=== PATIENT | female | born 1955 | race Caucasian/White ===

== ENCOUNTER 2017-05-28 09:00 | Outpatient (RCR) | payer BC, SELFPAY ==
[2017-05-14 09:55] VITALS: BP 152/95; PULSE 79; RESP 16; TEMP 36.6; BMI 54.8
--- NOTE | 2017-05-14 11:26 | HP.PCM_ITS ---
(1) Swelling of lower limb Status: Chronic Current Visit: Yes Code(s): M79.89 - Other specified soft tissue disorders (2) Edema of both legs Status: Chronic Current Visit: Yes Code(s): R60.0 - Localized edema (3) Leg ulcer Status: Acute Current Visit: Yes Qualifiers: Laterality: left Non-pressure ulcer stage: limited to breakdown of skin Qualified Code(s): L97.921 - Non-pressure chronic ulcer of unspecified part of left lower leg limited to breakdown of skin Code(s): L97.909 - Non-pressure chronic ulcer of unspecified part of unspecified lower leg with unspecified severity (4) Chronic venous insufficiency Status: Chronic Current Visit: Yes Code(s): I87.2 - Venous insufficiency ( chronic) (peripheral) (5) Lipodermatosclerosis Status: Chronic Current Visit: Yes Code(s): I83.10 - Varicose veins of unspecified lower extremity with inflammation (6) Hyperpigmentation Status: Chronic Current Visit: Yes Code(s): L81.9 - Disorder of pigmentation , unspecified (7) Morbid obesity with BMI of 50.0-59.9, adult Status: Chronic Current Visit: Yes Code(s): E66.01 - Morbid (severe) obesity due to excess calories; Z68.43 - Body mass index (BMI) 50-59.9 , adult (8) SOB (shortness of breath) Status: Chronic Current Visit: No Code(s): R06.02 - Shortness of breath (9) Sleep apnea Status: Chronic Current Visit: No Code(s): G47.30 - Sleep apnea, unspecified (10) Osteoarthritis Status: Chronic Current Visit: No Code(s): M19.90 - Unspecified osteoarthritis, unspecified site (11) History of pulmonary embolism Status: Chronic Current Visit: No Code(s): Z86.711 - Personal history of pulmonary embolism History of Present Illness Date of Service: 05/14/17 Chief Complaint: Chronic swelling and edema in the lower extremities bilaterally History of Wound: This is a 61-year-old female with a 2-3 year history of swelling and edema in her lower extremities bilaterally. She has previously been treated for these symptoms and manifestations at this facility. She claims to sleep on a flat mattress at night. She is ambulatory, but not very active. 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 She denies a history of thrombophlebitis, but has a history of pulmonary embolism in 2016, for which she has been on systemic anticoagulation since that time, currently with Eliquis. She wears graduated compression stockings of 20-30 mmHg , obtained at a local medical supply store, approximately 1 year ago. Past Medical History Past Medical History: Chronic Problems Swelling of lower limb (Chronic) Edema of both legs (Chronic) Chronic venous insufficiency (Chronic) Lipodermatosclerosis (Chronic) Hyperpigmentation (Chronic) Morbid obesity with BMI of 50.0-59.9, adult (Chronic) SOB (shortness of breath) (Chronic) Sleep apnea (Chronic) Osteoarthritis (Chronic) History of pulmonary embolism (Chronic) Past Medical History: Patient has a history of morbid obesity, sleep apnea, osteoarthritis, and shortness of breath. She also has a history of pulmonary embolism, diagnosed in 2016. She denies a history of lower extremity thrombophlebitis. Her history is also negative for diabetes mellitus, myocardial infarction, congestive heart failure, cerebrovascular accident, hypertension, cancer, renal disease, hyperlipidemia, and thyroid disease. Surgical History: cholecystectomy, - - Patient underwent open cholecystectomy in 1984. She is a Ab0. Allergies/Adverse Reactions: Allergies No Known Allergies Allergy (Verified 05/14/17 10:35) Home Medications: Ambulatory Orders Medication Instructions Recorded Apixaban [Eliquis] 5 mg PO DAILY 05/14/17 Bumetanide [Bumex] 2 mg PO DAILY 05/14/17 Potassium Chloride [Klor-Con] 20 meq PO DAILY 05/14/17 - Family History Maternal - - Patient's father at the age of 72 with a history of pancreatic cancer. Patient's mother at age of 72 from a homicide. She also suffered from diabetes mellitus and hypertension. Social History: The patient is . She denies the use of tobacco products. She consumes alcoholic beverages occasionally. 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 Lives: Spouse/ Significant Other Smoking Status: Never smoker Tobacco Use: Non-smoker Alcohol: Rare Drugs: None Review of Systems Constitutional: Denies: Chills, Fever, Weight Change Eyes: Denies: Pain, Vision Change HEENT: Denies: Difficulty Hearing, Difficulty Swallowing, Sinus Congestion Cardiovascular: Denies: Chest Pain, Palpitations Respiratory: Denies: Cough, Shortness of Breath Gastrointestinal: Denies: Diarrhea, Nausea, Vomiting Genitourinary: Denies: Dysuria, Hematuria Endocrine: Denies: Heat/ Cold Intolerance, Polydipsia, Polyuria Hematologic/ Lymphatic: Denies: Easy Bruising, Easy Bleeding - Physical Exam Vital Signs Temp Pulse Resp BP 97.8 F 79 16 152/95 H 05/14/17 09:55 05/14/17 09:55 05/14/17 09:55 05/14/17 09:55 General: Alert, Oriented x3, Cooperative, No apparent distress, Well developed, Well nourished, - - The patient is morbidly obese HEENT: Atraumatic, PERRLA, EOMI, Normocephalic Oral: Moist Mucosa, No Gingival or Mucosal Lesions/ Ulcerations Neck: Supple, No JVD, Negative Carotid Bruits, Negative Hepatojugular Reflux, No Nodes, No Nuchal Rigidity, Trachea Midline Lungs: Clear to auscultation, Normal air movement, No rhonchi, No wheeze, No rales Cardiovascular: Regular rate, Regular Rhythm, Normal S1, Normal S2, No murmurs, No Ectopic Activity Abdomen: Soft, Non Tender, Non-Distended, Obese Extremities: No clubbing, No cyanosis, No Calf Tenderness, - - Severe swelling and edema is noted in the lower extremities bilaterally. There is a very small superficial open ulceration on the left anterior tibial surface. Dimensions are documented elsewhere. There is no sign of infection or cellulitis. Mild hyperpigmentation and lipodermatosclerosis is noted on the anterior tibial surfaces bilaterally. Wound Measurements and Assessment - Nurse 1 - General Ulcer Measurement Start: 05/14/17 09:52 Freq: Status: Active Protocol: Activity Type Activity Date Activity User E-Sign Co-Sign Detail Recorded Client Recorded Date Recorded By Document 05/14/17 09:55 [facility] [id number] 05/14/17 10:16 [facility] 05/14/17 09:55 Wound Center Nurse 1 [Ulcer Assessment Protocol: WC.WD.LOC] #2- BLE EDEMA -Combined with other wound No #1- LT CORTES -Combined with other wound No -Current Size (cm) - Length 0.6 -Current Size (cm) - Width 0.5 -Current Size (cm) - Depth 0.1 -Total Square Cm 0.30 -Date of Last Picture (Recall this 05/14/17 field) -Photo Taken No -Epithelialization None Present -Tunneling No -Undermining/Tunneling No -Exudate Amt Small (1-33%) -Exudate Type Serous -Wound Margin Distinct, Outline Attached -Granulation Amt Large (67-100%) -Granulation Quality Red -Slough/Fibrin No -Necrosis Amt None Present (0 %) -Structure Exposed None/Limited to Skin Breakdown -Texture (Indigo-wound Skin Appearance) Assessed -Moisture (Indigo-wound Skin Appearance Dry/Scaly ) -Color (Indigo-wound Skin Appearance) Hemosiderin Staining -Temperature (Indigo-wound Skin No Abnormality Appearance) (Pt Warm) -Tenderness on Palpation (Indigo-wound No Skin Appearance) -Ulcer Cleansing Rinsed/ Irrigated with Saline -Foul Odor after Cleansing No -Anesthetic Used 4% Lidocaine Solution [Edema Assessment] -Lower Limb Edema Present Yes -Right Calf (cm) 52.2 -Right Ankle (cm) 27.5 -Left Calf (cm) 52.9 -Left Ankle (cm) 28.6 Musculoskeletal: No Muscle Wasting Neurological: Cranial nerves II-XII grossly intact, Neuro grossly intact Psych/Mental Status: Normal Affect, Appropriate, Alert and oriented to time, place, person, mood and affect Debridement Note No debridement was completed today Assessment/Plan Active Problems Swelling of lower limb (Chronic) Edema of both legs (Chronic) Leg ulcer (Acute) Chronic venous insufficiency (Chronic) Lipodermatosclerosis (Chronic) Hyperpigmentation (Chronic) Morbid obesity with BMI of 50.0-59.9, adult (Chronic) Assessment: This is a 61-year-old morbidly obese female who presents with a several year history of swelling and edema in her lower extremities. Her other medical problems are documented elsewhere. It appears as though her lower extremity swelling is likely related to immobility, chronic dependency, and morbid obesity. Plan: Patient has been advised to implement conservative treatment measures relative to the swelling and edema in her lower extremities. She is to elevate her lower extremities as much as possible, even during daytime hours. She is to avoid idle standing and sitting as much as possible. Activity has been encouraged. She is to continue wearing graduated compression stockings in the short-term, which she currently positions. These are nearly 1-year-old, and it is likely that a new pair will be required. However, it is anticipated that compression wraps will be implemented initially, before long-term management with graduated compression stockings. The patient has been advised to use moisturizing lotion on the scaly, dermatitic portion of the skin on the anterior tibial surfaces. Collagen hydrogel is to be used topically on the small superficial ulceration on the left anterior tibial surface. The patient has had recent blood chemistries, which appear to be normal. Venous duplex examination and ankle-brachial indices will be obtained within the next week, prior to the patient's follow-up visit. She will return in 1 week for reassessment. It is anticipated that we will begin compression using compression wraps at that time. Influenza vaccine was not administered today. The patient is not a smoker. Patient stands 5 feet 6 inches tall. She weighs 340 pounds. This places her in a class III category. Weight loss has been recommended, and the patient has been advised to collaborate with her primary care physician in terms of weight loss options.
--- NOTE | 2017-05-20 12:50 | VDLE_ITS ---
Reason For Study: ULCERATION RIGHT LEFT CFV is compressible, spontaneous, phasic, CFV is compressible, spontaneous, phasic, competent and demonstrates normal competent, and demonstrates normal augmentation. augmentation. FV is compressible, spontaneous, phasic, FV is compressible, spontaneous, phasic, competent and demonstrates normal competent and demonstrates normal augmentation. augmentation. POP V is compressible, spontaneous, phasic, POP V is compressible, spontaneous, phasic, competent and demonstrates normal competent and demonstrates normal augmentation. augmentation. T/P Trunk is compressible. T/P Trunk is compressible. PTV is compressible. PTV is compressible. RT PerV is compressible. LT PerV is compressible. Rt GSV is compressible and competent Left GSV is compressible and competent throughout. throughout. Rt SSV is compressible and competent . Left SSV is compressible and competent Left SSV is thick walled. throughout. Procedure Left SSV is thick walled. Exam performed in department. Technically difficult study due to body habitus. A preliminary report was called and/or faxed to DR CRAIN. Interpretation Summary Deep veins of the lower extremities are bilaterally patent and compressible segmentally. There is no evidence of deep vein thrombosis on either side. Valvular competence appears intact within the proximal deep venous systems bilaterally. The greater saphenous veins appear bilaterally patent and compressible segmentally. Valvular competence appears to be intact segmentally within the greater saphenous veins bilaterally. Small saphenous veins are patent and competent bilaterally, demonstrating chronic vein wall thickening bilaterally. Ordering Physician: Pawan Crain Referring Physician: JOSEFA BHAKTA Performed By: Agata Porter, VELVET, RVT
[2017-05-28 08:44] VITALS: BP 154/72; PULSE 74; RESP 16; TEMP 36.7; BMI 54.8
--- NOTE | 2017-05-28 09:16 | HP.PCM_ITS ---
(1) Swelling of lower limb Status: Chronic Current Visit: Yes Code(s): M79.89 - Other specified soft tissue disorders (2) Edema of both legs Status: Chronic Current Visit: Yes Code(s): R60.0 - Localized edema (3) Leg ulcer Status: Acute Current Visit: Yes Qualifiers: Laterality: left Non-pressure ulcer stage: limited to breakdown of skin Qualified Code(s): L97.921 - Non-pressure chronic ulcer of unspecified part of left lower leg limited to breakdown of skin Code(s): L97.909 - Non-pressure chronic ulcer of unspecified part of unspecified lower leg with unspecified severity (4) Chronic venous insufficiency Status: Chronic Current Visit: Yes Code(s): I87.2 - Venous insufficiency ( chronic) (peripheral) (5) Lipodermatosclerosis Status: Chronic Current Visit: Yes Code(s): I83.10 - Varicose veins of unspecified lower extremity with inflammation (6) Hyperpigmentation Status: Chronic Current Visit: Yes Code(s): L81.9 - Disorder of pigmentation , unspecified (7) Morbid obesity with BMI of 50.0-59.9, adult Status: Chronic Current Visit: Yes Code(s): E66.01 - Morbid (severe) obesity due to excess calories; Z68.43 - Body mass index (BMI) 50-59.9 , adult (8) SOB (shortness of breath) Status: Chronic Current Visit: No Code(s): R06.02 - Shortness of breath (9) Sleep apnea Status: Chronic Current Visit: No Code(s): G47.30 - Sleep apnea, unspecified (10) Osteoarthritis Status: Chronic Current Visit: No Code(s): M19.90 - Unspecified osteoarthritis, unspecified site (11) History of pulmonary embolism Status: Chronic Current Visit: No Code(s): Z86.711 - Personal history of pulmonary embolism History of Present Illness Date of Service: 05/28/17 Chief Complaint: Chronic swelling and edema in the lower extremities bilaterally History of Wound: This is a 61-year-old female with a 2-3 year history of swelling and edema in her lower extremities bilaterally. She has previously been treated for these symptoms and manifestations at this facility. She claims to sleep on a flat mattress at night. She is ambulatory, but not very active. 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 She denies a history of thrombophlebitis, but has a history of pulmonary embolism in 2016, for which she has been on systemic anticoagulation since that time, currently with Eliquis. She wears graduated compression stockings of 20-30 mmHg , obtained at a local medical supply store, approximately 1 year ago. Since patient's last visit, she is undergone a noninvasive lower extremity arterial study, which is normal. There is no evidence of significant arterial occlusive disease in her lower extremities. A venous duplex examination revealed no evidence of significant superficial venous incompetence. Great saphenous veins are bilaterally competent. Small saphenous veins are competent bilaterally as well. Past Medical History Past Medical History: Chronic Problems Swelling of lower limb (Chronic) Edema of both legs (Chronic) Chronic venous insufficiency (Chronic) Lipodermatosclerosis (Chronic) Hyperpigmentation (Chronic) Morbid obesity with BMI of 50.0-59.9, adult (Chronic) SOB (shortness of breath) (Chronic) Sleep apnea (Chronic) Osteoarthritis (Chronic) History of pulmonary embolism (Chronic) Surgical History: cholecystectomy, - - Patient underwent open cholecystectomy in 1984. She is a Ab0. Allergies/Adverse Reactions: Allergies No Known Allergies Allergy (Verified 05/14/17 10:35) Home Medications: Ambulatory Orders Medication Instructions Recorded Apixaban [Eliquis] 5 mg PO DAILY 05/14/17 Bumetanide [Bumex] 2 mg PO DAILY 05/14/17 Potassium Chloride [Klor-Con] 20 meq PO DAILY 05/14/17 - Family History Maternal - - Patient's father at the age of 72 with a history of pancreatic cancer. Patient's mother at age of 72 from a homicide. She also suffered from diabetes mellitus and hypertension. Lives: Spouse/ Significant Other Smoking Status: Never smoker Tobacco Use: Non-smoker Alcohol: Rare Drugs: None Review of Systems Constitutional: Denies: Chills, Fever, Weight Change Eyes: Denies: Pain, Vision Change HEENT: Denies: Difficulty Hearing, Difficulty Swallowing, Sinus Congestion Cardiovascular: Denies: Chest Pain, Palpitations Respiratory: Denies: Cough, Shortness of Breath Gastrointestinal: Denies: Diarrhea, Nausea, Vomiting Genitourinary: Denies: Dysuria, Hematuria Endocrine: Denies: Heat/ Cold Intolerance, Polydipsia, Polyuria Hematologic/ Lymphatic: Denies: Easy Bruising, Easy Bleeding - Physical Exam Vital Signs Temp Pulse Resp BP 98.0 F 74 16 154/72 H 05/28/17 08:44 05/28/17 08:44 05/28/17 08:44 05/28/17 08:44 General: Alert, Oriented x3, Cooperative, No apparent distress, Well developed, Well nourished HEENT: Atraumatic, PERRLA, EOMI, Normocephalic Oral: Moist Mucosa Neck: No JVD Lungs: Normal air movement Abdomen: Non-Distended, Obese Extremities: No clubbing, No cyanosis, No Calf Tenderness, - - The patient's left lower extremity ulceration is now completely healed and epithelialized. There are no open wounds or ulcerations in the lower extremities. There is no sign of infection or cellulitis. Only mild swelling and edema persists. Chronic changes persist as well, namely hyperpigmentation and lipodermatosclerosis on the anterior tibial surfaces bilaterally. Circumference measurements are documented elsewhere. Skin: No rashes, No breakdown Wound Measurements and Assessment WC - Nurse 1 - General Ulcer Measurement Start: 05/14/17 09:52 Freq: Status: Active Protocol: Activity Type Activity Date Activity User E-Sign Co-Sign Detail Recorded Client Recorded Date Recorded By Document 05/28/17 08:44 MW [id number] 05/28/17 08:48 MW 05/28/17 08:44 Wound Center Nurse 1 [Ulcer Assessment Protocol: WC.WD.LOC] #2- BLE EDEMA -Combined with other wound No #1- LT CORTES -Combined with other wound No -Current Size (cm) - Length 0.1 -Current Size (cm) - Width 0.1 -Current Size (cm) - Depth 0.1 -Total Square Cm 0.01 -Date of Last Picture (Recall this 05/28/17 field) -Photo Taken Yes -Epithelialization Large 67-100% -Tunneling No -Undermining/Tunneling No -Circular Undermining No -Exudate Amt None Present (0 %) -Wound Margin Flat & Intact -Granulation Amt None Present (0 %) -Granulation Quality N/A -Slough/Fibrin No -Structure Exposed N/A -Texture (Indigo-wound Skin Appearance) Assessed Localized Edema -Moisture (Indigo-wound Skin Appearance Assessed ) Dry/Scaly -Color (Indigo-wound Skin Appearance) Not Assessed Hemosiderin Staining -Temperature (Indigo-wound Skin No Abnormality Appearance) (Pt Warm) -Tenderness on Palpation (Indigo-wound No Skin Appearance) -Ulcer Cleansing Rinsed/ Irrigated with Saline -Foul Odor after Cleansing No [Edema Assessment] -Lower Limb Edema Present Yes -Right Calf (cm) 52.2 -Right Ankle (cm) 26.6 -Left Calf (cm) 53.2 -Left Ankle (cm) 28.3 Neurological: Cranial nerves II-XII grossly intact, Neuro grossly intact Psych/Mental Status: Normal Affect, Appropriate, Alert and oriented to time, place, person, mood and affect Debridement Note No debridement was completed today Assessment/Plan Active Problems Swelling of lower limb (Chronic) Edema of both legs (Chronic) Leg ulcer (Acute) Chronic venous insufficiency (Chronic) Lipodermatosclerosis (Chronic) Hyperpigmentation (Chronic) Morbid obesity with BMI of 50.0-59.9, adult (Chronic) Assessment: This is a 61-year-old morbidly obese female who presents with a several year history of swelling and edema in her lower extremities. Her other medical problems are documented elsewhere. It appears as though her lower extremity swelling is likely related to immobility, chronic dependency, and morbid obesity. The patient's ulceration is now completely healed and epithelialized. Plan: The patient's ulceration is now completely healed and epithelialized. Patient has been advised to implement conservative treatment measures relative to the swelling and edema in her lower extremities. She is to elevate her lower extremities as much as possible, even during daytime hours. She is to avoid idle standing and sitting as much as possible. Activity has been encouraged. She is to continue wearing graduated compression stockings on a daily basis. A prescription has been provided for new graduated compression stockings of 20-30 mmHg, knee-high length. The patient has been advised to use moisturizing lotion on the scaly, dermatitic portion of the skin on the anterior tibial surfaces. The patient has had recent blood chemistries, which appear to be normal. Venous duplex examination is relatively normal, and not indicative of any superficial venous incompetence which may be amenable to endovenous ablation. The patient is to be discharged at this time. Her wound is now completely healed. I have discussed the appropriate conservative treatment measures for long-term management of her lower extremity swelling and edema. Weight loss and compliance with recommended measures is of utmost importance, or else patient is likely to have continued problems with swelling, edema, and ulceration in the lower extremities in the future. The patient will follow-up henceforth on an as-needed basis. Influenza vaccine was not administered today. The patient is not a smoker. Patient stands 5 feet 6 inches tall. She weighs 340 pounds. This places her in a class III category. Weight loss has been recommended, and the patient has been advised to collaborate with her primary care physician in terms of weight loss options.
== END 2017-06-12 23:59 ==
LOC: WC 09:00
PROVIDERS: Family Provider Family Medicine; PCP Family Medicine; Visit Provider Surgery
DX: I83.029 Varicose veins of left lower extremity with ulcer of unspecified site (principal); L97.921 Non-pressure chronic ulcer of unspecified part of left lower leg limited to breakdown of skin; R60.0 Localized edema; M79.89 Other specified soft tissue disorders; I87.2 Venous insufficiency (chronic) (peripheral); E66.01 Morbid (severe) obesity due to excess calories; G47.30 Sleep apnea, unspecified; M19.90 Unspecified osteoarthritis, unspecified site; Z68.43 Body mass index [BMI] 50.0-59.9, adult; Z71.3 Dietary counseling and surveillance; Z86.711 Personal history of pulmonary embolism; Z79.01 Long term (current) use of anticoagulants; Z79.899 Other long term (current) drug therapy
CPT/HCPCS: 93970; 99211; 99213; G0463

== ENCOUNTER → 2017-07-20 10:00 | Outpatient (CLI) | payer BC, SELFPAY ==
--- NOTE | 2017-07-20 10:02 | HPBI_ITS ---
MAMMOGRAPHY - BILATERAL SCREENING REASON FOR EXAM: Female, 61 years old. Routine annual screening examination. PERTINENT HISTORY: Non-contributory. TECHNIQUE: Digital bilateral breast lea (3D mammographic acquisition) in the CC and MLO projections. 2-D mediolateral oblique (MLO) and craniocaudad (CC) views of both breasts were obtained. CAD: Full Field Digital Mammography with Computer Added Detection was performed. COMPARISON: Comparison is made with prior examination dated January 26, 2016 and October 18, 2014. FINDINGS: Breast Composition: There are scattered areas of fibroglandular density. There are no dominant masses or suspicious calcifications. No other significant abnormalities are identified. There has been no significant change since the prior study. HPBI/SCREENING MAMM (CAD), BILAT IMPRESSION: Stable bilateral screening mammogram. Yearly follow-up mammogram recommended. (A) ASSESSMENT CATEGORY: BIRADS Category 1: Negative. A letter regarding these results will be sent to the patient by the facility within 30 days. Approximately 10% of breast cancers are not detected by mammography. A normal mammogram should not delay biopsy of a clinically suspicious abnormality. [id number] Electronically Signed: Jamarcus Burger MD at 8:32 EDT Tel [phone], Service support ,
== END ==
PROVIDERS: Family Provider Family Medicine; PCP Family Medicine; Visit Provider Family Medicine
DX: Z12.31 Encounter for screening mammogram for malignant neoplasm of breast (principal)
CPT/HCPCS: 77063; 77067

== ENCOUNTER → 2017-09-05 14:34 | Outpatient (CLI) | payer BC, SELFPAY ==
--- NOTE | 2017-09-05 14:39 | RAD_ITS ---
STUDY: X-RAY - RIGHT SHOULDER REASON FOR EXAM: Female, 61 years old. Neck and shoulder pain TECHNIQUE: 4 view(s) of the shoulder. COMPARISON: None. FINDINGS: Normal glenohumeral articulation. There is degenerative arthrosis of the acromioclavicular joint without inferior osseous spur formation. Normal acromion. Normal humeral head and visualized proximal humerus. The soft tissue structures are unremarkable. There is no demonstrated fracture. Normal visualized pulmonary apex. RAD/Shoulder min 2 Views IMPRESSION: Degenerative changes of the AC joint. No acute abnormality. Electronically Signed: Juliocesar Paige MD at 21:15 EDT , Service support ,
--- NOTE | 2017-09-05 14:39 | RAD_ITS ---
STUDY: X-RAY - CERVICAL SPINE REASON FOR EXAM: Female, 61 years old. Neck and right shoulder pain TECHNIQUE: 6 view(s) of the cervical spine were obtained. COMPARISON: None FINDINGS: Normal anterior atlantoaxial articulation. Normal odontoid process. Normal cervical lordosis. Normal vertebral bodies and endplates. Normal disc space heights. Normal visualized intervertebral neuroforamina. The soft tissue structures are unremarkable. There is no demonstrated fracture of the cervical spine. RAD/Cerv Spine 4 or 5 Views IMPRESSION: Unremarkable for age. Electronically Signed: Juliocesar Paige MD at 21:14 EDT , Service support ,
== END ==
LOC: HPRAD 14:36
PROVIDERS: Family Provider Family Medicine; PCP Family Medicine; Visit Provider Family Medicine
DX: M19.011 Primary osteoarthritis, right shoulder (principal); M54.2 Cervicalgia
CPT/HCPCS: 72050; 73030

== ENCOUNTER → 2017-09-27 17:58 | Outpatient (CLI) | payer BC, SELFPAY | PROVIDERS: Family Provider Family Medicine; PCP Family Medicine; Visit Provider Physician Assistant Surgical | DX: R31.9 Hematuria, unspecified (principal) | CPT/HCPCS: 87086 ==

== ENCOUNTER → 2017-10-17 09:15 | Outpatient (CLI) | payer BC, SELFPAY ==
--- NOTE | 2017-10-17 09:15 | DT_ITS ---
This patient was seen during an EMR downtime October 14, 2017 - October 21, 2017. This patient may have a combination of paper and electronic documentation or all paper documentation. All documentation is viewable within the e-chart portion of [facility] for each patient visit.
[2017-10-22 02:23] LABS: BUN 16 mg/dL (7-18)
[2017-10-22 02:24] LABS: ALB/GLOB Ratio 0.8 RATIO (0.9-2.4); AST(SGOT) 12 U/L (15-37); Alanine Aminotransfer ALT/SGPT 22 U/L (13-56); Albumin, Serum 3.3 g/dL (3.2-5.0); Alkaline Phosphatase 98 U/L (45-117); Anion Gap 10 (5-15); BUN/Creat Ratio 23.2 RATIO (10-20); Calcium,Total 8.7 mg/dL (8.5-10.1); Chloride 106 mmol/L (98-107); Cholesterol 202 mg/dL (200); Creatinine, Serum 0.69 mg/dL (0.55-1.02); EST Glomerular Filtration Rate 92 mL/min (>60); Est Glom Filt Rate - Afr Amer 112 mL/min (>60); Potassium 4.4 mmol/L (3.5-5.1); Protein, Total 7.3 g/dL (6.4-8.2); Sodium Level 140 mmol/L (136-145); Triglycerides 87 mg/dL; Very Low Density Lipoprotein 17 mg/dL (5-40)
[2017-10-22 02:25] LABS: Glucose 90 mg/dL (74-106); High Density Lipoprotein 58 mg/dL
[2017-10-22 02:33] LABS: Hematocrit 42.8 % (37-47); Hemoglobin 13.8 g/dl (12.0-15.0); Red Blood Count 4.73 M/mm3 (4.2-5.4)
[2017-10-22 02:34] LABS: Basophil% 0.6 % (0-1); Eosinophils% 2.4 % (0-5); Mean Corp Hgb Conc 32.2 g/gl (32-36); Mean Corpuscular Hgb 29.2 pg (27.0-32.0); Mean Corpuscular Volume 90.5 fL (81-99); Mean Platelet Vol. 12.8 fl (6.2-12.0); Monocyte% 7.4 % (0-10); Neutrophil # 4.47 X10^3/uL (2.7-7.7); Neutrophil % 62.6 % (47-70); POSITIVE COUNT NO; POSITIVE DIFFERENTIAL NO; POSITIVE MORPHOLOGY NO; Platelet Count 233 K/mm3 (150-450); RBC Distribution Width CV 13.8 % (11.6-14.6); RBC Distribution Width SD 45.6 fl (35.1-43.9)
[2017-10-22 02:35] LABS: Absolute Lymphocyte Count 1.93 X10^3/ul (0.83-4.51); Absolute Neutrophil Count 4.5 X10^3/uL (2.0-7.7); Basophil# 0.04 X10^3/uL; Eosinophil# 0.17 X10^3/uL; Lymphocyte # 1.93 X10^3/ul (4.0); Monocyte# 0.53 X10^3/uL
[2017-10-22 02:36] LABS: White Blood Count 7.1 K/mm3 (4.4-11.0)
== END ==
PROVIDERS: Family Provider Family Medicine; PCP Family Medicine; Visit Provider Family Medicine
DX: Z00.00 Encounter for general adult medical examination without abnormal findings (principal)
CPT/HCPCS: 36415; 80053; 80061; 85025

== ENCOUNTER → 2017-11-27 13:00 | Outpatient (CLI) | payer BC, SELFPAY ==
[2017-12-02 10:12] LABS: HPV Reflexed? NOT INDICATED
== END ==
PROVIDERS: Visit Provider Obstetrics & Gynecology
DX: Z01.419 Encounter for gynecological examination (general) (routine) without abnormal findings (principal)
CPT/HCPCS: 88175; G0145

== ENCOUNTER → 2018-09-22 15:49 | Outpatient (CLI) | payer BC, SELFPAY ==
[2018-09-22 17:55] LABS: Absolute Lymphocyte Count 1.99 X10^3/ul (0.83-4.51); Absolute Neutrophil Count 5.2 X10^3/uL (2.0-7.7); Basophil# 0.05 X10^3/uL; Basophil% 0.6 % (0-1); Eosinophil# 0.25 X10^3/uL; Eosinophils% 3.1 % (0-5); Hematocrit 41.7 % (37-47); Hemoglobin 13.6 g/dl (12.0-15.0); Lymphocyte # 1.99 X10^3/ul (4.0); Lymphocyte % 24.5 % (19-41); Mean Corp Hgb Conc 32.6 g/gl (32-36); Mean Corpuscular Hgb 28.8 pg (27.0-32.0); Mean Corpuscular Volume 88.3 fL (81-99); Mean Platelet Vol. 12.5 fl (6.2-12.0); Monocyte# 0.62 X10^3/uL; Monocyte% 7.6 % (0-10); Neutrophil # 5.19 X10^3/uL (2.7-7.7); Neutrophil % 64.1 % (47-70); Platelet Count 232 K/mm3 (150-450); RBC Distribution Width CV 13.8 % (11.6-14.6); RBC Distribution Width SD 43.6 fl (35.1-43.9); Red Blood Count 4.72 M/mm3 (4.2-5.4); White Blood Count 8.1 K/mm3 (4.4-11.0)
[2018-09-22 17:56] LABS: POSITIVE COUNT NO; POSITIVE DIFFERENTIAL NO; POSITIVE MORPHOLOGY NO
[2018-09-22 18:06] LABS: Hemoglobin A1c 5.8 % (4.2-6.3)
[2018-09-22 18:12] LABS: ALB/GLOB Ratio 0.8 RATIO (0.9-2.4); AST(SGOT) 13 U/L (15-37); Alanine Aminotransfer ALT/SGPT 22 U/L (13-56); Albumin, Serum 3.4 g/dL (3.2-5.0); Alkaline Phosphatase 113 U/L (45-117); Anion Gap 8 (5-15); BUN 12 mg/dL (7-18); BUN/Creat Ratio 17.7 RATIO (10-20); Calcium,Total 8.7 mg/dL (8.5-10.1); Chloride 106 mmol/L (98-107); Cholesterol 185 mg/dL (200); Creatinine, Serum 0.68 mg/dL (0.55-1.02); EST Glomerular Filtration Rate 94 mL/min (>60); Est Glom Filt Rate - Afr Amer 113 mL/min (>60); Glucose 87 mg/dL (74-106); High Density Lipoprotein 51 mg/dL; Protein, Total 7.4 g/dL (6.4-8.2); Sodium Level 141 mmol/L (136-145); T4 Free Direct 1.19 ng/dL (0.76-1.46); Thyroid Stim Hormone (TSH) 2.93 uIU/mL (0.358-3.74); Triglycerides 101 mg/dL; Very Low Density Lipoprotein 20 mg/dL (5-40)
== END ==
LOC: MTLAB 15:51
PROVIDERS: Family Provider Family Medicine; PCP Family Medicine; Referring Provider Family Medicine; Visit Provider Family Medicine
DX: Z00.01 Encounter for general adult medical examination with abnormal findings (principal); I10 Essential (primary) hypertension; E66.01 Morbid (severe) obesity due to excess calories; R60.0 Localized edema
CPT/HCPCS: 36415; 80053; 80061; 83036; 84439; 84443; 85025

== ENCOUNTER → 2018-10-15 09:34 | Outpatient (CLI) | payer BC, SELFPAY ==
[2018-10-15 12:22] LABS: International Normalized Ratio 1.1; Prothrombin Time (Protime)PT. 14.1 SECONDS (11.7-14.9)
[2018-10-15 12:23] LABS: Absolute Lymphocyte Count 1.51 X10^3/ul (0.83-4.51); Basophil# 0.02 X10^3/uL; Basophil% 0.3 % (0-1); Eosinophil# 0.13 X10^3/uL; Eosinophils% 1.8 % (0-5); Hematocrit 41.9 % (37-47); Hemoglobin 13.1 g/dl (12.0-15.0); Lymphocyte # 1.51 X10^3/ul (4.0); Lymphocyte % 20.9 % (19-41); Mean Corp Hgb Conc 31.3 g/gl (32-36); Mean Corpuscular Hgb 28.1 pg (27.0-32.0); Mean Corpuscular Volume 89.7 fL (81-99); Monocyte# 0.56 X10^3/uL; Monocyte% 7.7 % (0-10); Neutrophil # 5.01 X10^3/uL (2.7-7.7); Neutrophil % 69.2 % (47-70); POSITIVE COUNT NO; POSITIVE DIFFERENTIAL NO; POSITIVE MORPHOLOGY NO; Platelet Count 212 K/mm3 (150-450); RBC Distribution Width CV 13.9 % (11.6-14.6); RBC Distribution Width SD 45.1 fl (35.1-43.9); Red Blood Count 4.67 M/mm3 (4.2-5.4); White Blood Count 7.2 K/mm3 (4.4-11.0)
[2018-10-15 12:44] LABS: Thyroid Stim Hormone (TSH) 3.72 uIU/mL (0.358-3.74)
== END ==
PROVIDERS: Family Provider Family Medicine; PCP Family Medicine; Visit Provider Family Medicine
DX: N95.0 Postmenopausal bleeding (principal); R31.9 Hematuria, unspecified
CPT/HCPCS: 36415; 84443; 85025; 85610; 87077; 87086; 87088; 87186

== ENCOUNTER → 2018-10-23 11:47 | Outpatient (CLI) | payer BC, SELFPAY ==
--- NOTE | 2018-10-23 11:50 | US_ITS ---
STUDY: ULTRASOUND TRANSVAGINAL CLINICAL: Female, 63 years old. Postmenopausal bleeding TECHNIQUE: Transabdominal and Transvaginal COMPARISON: None. FINDINGS: The study is limited by patient body habitus. The ovaries are not visualized. The uterus measures 7.0 x 3.3 x 4.1 cm and is heterogeneous in echotexture. There are no focal uterine lesions. There is a nabothian cyst noted in the cervix. The endometrium measures 5 mm and is hyperechoic. US/Transvaginal Non- IMPRESSION: Limited study. Ovaries not visualized. Consistent in the cervix. Otherwise, normal uterus. Electronically Signed: Felice Harris, at 16:15 EDT Tel , Service support ,
== END ==
PROVIDERS: Family Provider Family Medicine; PCP Family Medicine; Referring Provider Family Medicine; Visit Provider Family Medicine
DX: N95.0 Postmenopausal bleeding (principal)
CPT/HCPCS: 76830

== ENCOUNTER → 2019-02-12 16:41 | Outpatient (CLI) | payer BC, SELFPAY ==
--- NOTE | 2019-02-12 16:46 | RAD_ITS ---
STUDY: X-RAY - LUMBAR SPINE REASON FOR EXAM: Female, 63 years old. Acute low back pain TECHNIQUE: 5 view(s) of the lumbar spine were obtained. COMPARISON: None FINDINGS: Normal lumbar lordosis. There is no substantial scoliosis. There is a normal alignment of the vertebrae. Normal vertebral bodies and endplates. Mild degenerative disc narrowing and spondylitic endplate changes from L1 L2-L4 L5. Moderate disc narrowing at L5-S1. Facet arthrosis primarily at L4-5. Ossification of the iliolumbar ligaments bilaterally. Normal sacroiliac joints. The soft tissue structures are unremarkable. RAD/L/S Spine Min 4 Views IMPRESSION: A normal alignment of the lumbar spine without fracture, osteolytic or blastic bone lesions. Mild degenerative disc narrowing from L1-2 through L4-5 with moderate narrowing at L5-S1. Facet arthrosis primarily at L4-5. Ossification of the iliolumbar ligaments bilaterally has no proven clinical significance as yet but has been associated with seronegative spondylarthritis and hypoparathyroidism but more commonly associated with degenerative changes or idiopathic skeletal hyperostosis. Electronically Signed: Kacy Mantilla MD at 16:40 EDT , Service support ,
== END ==
LOC: MTRAD 16:44
PROVIDERS: Family Provider Family Medicine; PCP Family Medicine; Referring Provider Family Medicine; Visit Provider Family Medicine
DX: M48.07 Spinal stenosis, lumbosacral region (principal); M51.37 Other intervertebral disc degeneration, lumbosacral region
CPT/HCPCS: 72110

== ENCOUNTER → 2019-12-31 13:38 | Outpatient (CLI) | payer BC, SELFPAY ==
[2019-12-31 13:42] LABS: Bacteria 0 SEEN /hpf (None Seen); Mucous, Urine 0 SEEN /hpf (<or=2+); White Blood Cells 0 SEEN /hpf (0-5)
[2019-12-31 15:31] LABS: Absolute Lymphocyte Count 1.98 X10^3/uL (0.83-4.51); Absolute Neutrophil Count 4.6 X10^3/uL (2.0-7.7); Basophil# 0.05 X10^3/uL; Basophil% 0.7 % (0-1); Eosinophils% 2.7 % (0-5); Hematocrit 42.1 % (37-47); Hemoglobin 13.1 g/dL (12.0-15.0); Lymphocyte # 1.98 X10^3/ul (4.0); Lymphocyte % 26.8 % (19-41); Mean Corp Hgb Conc 31.1 g/dL (32-36); Mean Corpuscular Hgb 28.7 pg (27.0-32.0); Mean Corpuscular Volume 92.3 fL (81-99); Mean Platelet Vol. 13.2 fl (6.2-12.0); Monocyte# 0.55 X10^3/uL; Monocyte% 7.4 % (0-10); NRBC Flagged by Analyzer 0 % (0-5); Neutrophil # 4.61 X10^3/uL (2.7-7.7); Neutrophil % 62.3 % (47-70); Platelet Count 213 K/mm3 (150-450); RBC Distribution Width CV 13.6 % (11.6-14.6); RBC Distribution Width SD 46.4 fl (35.1-43.9); Red Blood Count 4.56 M/mm3 (4.2-5.4); White Blood Count 7.4 K/mm3 (4.4-11.0)
[2019-12-31 15:42] LABS: D-Dimer Quantitative (DVT/PE) 0.42 FEU/ug/m (0.27-0.49)
[2019-12-31 16:03] LABS: ALB/GLOB Ratio 0.8 RATIO (0.9-2.4); AST(SGOT) 16 U/L (15-37); Alanine Aminotransfer ALT/SGPT 22 U/L (13-56); Albumin, Serum 3.3 g/dL (3.2-5.0); Alkaline Phosphatase 104 U/L (45-117); Anion Gap 2 (5-15); BUN 13 mg/dL (7-18); BUN/Creat Ratio 18.1 RATIO (10-20); Calcium,Total 8.7 mg/dL (8.5-10.1); Chloride 109 mmol/L (98-107); Creatinine, Serum 0.72 mg/dL (0.55-1.02); EST Glomerular Filtration Rate 87 mL/min (>60); Est Glom Filt Rate - Afr Amer 106 mL/min (>60); Globulin 4.2 g/dL (2.2-4.2); Glucose 88 mg/dL (74-106); Potassium 3.9 mmol/L (3.5-5.1); Protein, Total 7.5 g/dL (6.4-8.2); Sodium Level 139 mmol/L (136-145)
[2019-12-31 17:16] LABS: Glucose, Dipstick Normal (Normal); Ketone-Dipstick 5 mg/dl (Negative); Leukocyte Esterase-Dipstick Negative /ul (Negative); Nitrite-Dipstick Negative (Negative); Occult Blood-Urine 10 /ul (Negative); Protein-Dipstick Negative (Negative); Urine Bilirubin Dipstick Negative (Negative); Urine Urobilinogen Normal (Normal)
[2019-12-31 17:19] LABS: Color, Urine Yellow (Yellow); Urine Clarity Sl Cldy (Clear)
[2019-12-31 17:56] LABS: Red Blood Cells-Urine 0-5 SEEN /hpf (0-5); Squamous Epithelial Cells - UA 0-5 SEEN /hpf (5-10)
== END ==
PROVIDERS: PCP Family Medicine; Visit Provider Family Medicine
DX: R06.00 Dyspnea, unspecified (principal); I10 Essential (primary) hypertension; L75.0 Bromhidrosis; R32 Unspecified urinary incontinence
CPT/HCPCS: 36415; 80053; 81001; 85025; 85379; 87086; 87088

== ENCOUNTER → 2020-10-18 11:54 | Outpatient (CLI) | payer BC, SELFPAY ==
--- NOTE | 2020-10-18 12:00 | RAD_ITS ---
STUDY: X-RAY - LUMBAR SPINE REASON FOR EXAM: Female, 65 years old. PAIN TECHNIQUE: 5 view(s) of the lumbar spine were obtained including oblique views. COMPARISON: Comparison is made with prior study dated 02/12/2019. FINDINGS: Normal lumbar lordosis. There is no substantial scoliosis. There is a normal alignment of the vertebrae. There is multilevel endplate spondylosis of the lumbar vertebrae. There is multi-level degenerative disc disease with multi-level disc space narrowing. The soft tissue structures are unremarkable. RAD/L/S Spine Min 4 Views IMPRESSION: Degenerative changes of the spine, as detailed above. Electronically Signed: Jamarcus Burger MD at 15:08 EDT , Service support ,
[2020-10-18 15:11] LABS: Absolute Lymphocyte Count 1.91 X10^3/uL (0.83-4.51); Absolute Neutrophil Count 4.7 X10^3/uL (2.0-7.7); Basophil# 0.05 X10^3/uL; Basophil% 0.7 % (0-1); Eosinophil# 0.25 X10^3/uL; Eosinophils% 3.3 % (0-5); Erythrocyte Sedimentation Rate 47 mm/hr (0-30); Hematocrit 42.3 % (37-47); Hemoglobin 13.9 g/dL (12.0-15.0); Lymphocyte # 1.91 X10^3/ul (0.83-4.51); Lymphocyte % 25.4 % (19-41); Mean Corp Hgb Conc 32.9 g/dL (32-36); Mean Corpuscular Hgb 29.1 pg (27.0-32.0); Mean Corpuscular Volume 88.7 fL (81-99); Monocyte# 0.56 X10^3/uL; Monocyte% 7.4 % (0-10); NRBC Flagged by Analyzer 0 % (0-5); Neutrophil # 4.74 X10^3/uL (2.7-7.7); Neutrophil % 62.9 % (47-70); Platelet Count 241 K/mm3 (150-450); RBC Distribution Width CV 13.2 % (11.6-14.6); RBC Distribution Width SD 42.7 fl (35.1-43.9); Red Blood Count 4.77 M/mm3 (4.2-5.4); White Blood Count 7.5 K/mm3 (4.4-11.0)
[2020-10-18 15:12] LABS: Color, Urine Yellow (Yellow); Glucose, Dipstick Normal (Normal); Ketone-Dipstick Negative (Negative); Leukocyte Esterase-Dipstick Negative /ul (Negative); Nitrite-Dipstick Negative (Negative); Occult Blood-Urine 10 /ul (Negative); Protein-Dipstick Negative (Negative); Urine Bilirubin Dipstick Negative (Negative); Urine Clarity Clear (Clear); Urine Urobilinogen Normal (Normal)
[2020-10-18 15:21] LABS: BNP,B-Type NATRIURETIC PEPTIDE 107.3 pg/mL (0-100)
[2020-10-18 15:25] LABS: D-Dimer Quantitative (DVT/PE) 0.59 FEU/ug/m (0.27-0.49)
[2020-10-18 15:47] LABS: ALB/GLOB Ratio 0.8 RATIO (0.9-2.4); AST(SGOT) 12 U/L (15-37); Alanine Aminotransfer ALT/SGPT 19 U/L (13-56); Albumin, Serum 3.3 g/dL (3.2-5.0); Alkaline Phosphatase 113 U/L (45-117); Anion Gap 8 (5-15); BUN 13 mg/dL (7-18); BUN/Creat Ratio 16.2 RATIO (10-20); CRP 8.31 mg/L (0.0-3.0); Calcium,Total 8.9 mg/dL (8.5-10.1); Chloride 106 mmol/L (98-107); EST Glomerular Filtration Rate 76 mL/min (>60); Est Glom Filt Rate - Afr Amer 93 mL/min (>60); Globulin 4.2 g/dL (2.2-4.2); Glucose 89 mg/dL (74-106); Potassium 4.2 mmol/L (3.5-5.1); Protein, Total 7.5 g/dL (6.4-8.2); Sodium Level 138 mmol/L (136-145); Thyroid Stim Hormone (TSH) 2.91 uIU/mL (0.358-3.74)
[2020-10-19 07:56] LABS: PTHIN 120.3 pg/mL (18.4-80.1)
== END ==
PROVIDERS: PCP Family Medicine; Referring Provider Family Medicine; Visit Provider Family Medicine
DX: M54.5 Low back pain (principal); R06.00 Dyspnea, unspecified; R60.0 Localized edema; R51.9 Headache, unspecified; M89.8X9 Other specified disorders of bone, unspecified site; R63.5 Abnormal weight gain
CPT/HCPCS: 36415; 72110; 80053; 81002; 83880; 83970; 84443; 85025; 85379; 85652; 86140

== ENCOUNTER → 2020-10-21 14:07 | Outpatient (CLI) | payer BC, SELFPAY ==
--- NOTE | 2020-10-21 14:11 | CT_ITS ---
STUDY: CTA CHEST REASON FOR EXAM: Female, 65 years old. DYSPNEA,ELEVATED D DIMER,HX PE RADIATION DOSAGE (If Supplied By Facility): CTDIvol = ( 12.66 ) mGy, DLP = ( 567.16 ) mGycm TECHNIQUE: The examination was performed with the intravenous administration of IV 100mL Isovue-370. Post-processing of the angiographic images was performed, with multiplanar reformation and 3D reconstruction. Individualized dose optimization techniques were used for this CT. COMPARISON: Comparison is made with prior examination dated 03/25/2015. FINDINGS: Stable bilateral axillary lymph nodes. There are several nonocclusive intraluminal filling defects in branches of the upper lobe pulmonary arteries bilaterally. This is in keeping with the pulmonary emboli. Normal thoracic aorta and visualized great vessels. There is no demonstrated aortic dissection. Normal heart and pericardium. Normal mediastinum. Normal hilar regions. Normal visualized trachea and bronchi. The lungs are well expanded. Normal pulmonary parenchyma. Normal pleura. Normal chest wall structures. Normal osseous structures. Normal visualized upper abdomen. CT/CTA Chest W/WO Contrast IMPRESSION: Pulmonary emboli seen in branches of the right and left upper lobe pulmonary arteries. Electronically Signed: Jamarcus Burger MD at 15:00 EDT , Service support ,
== END ==
PROVIDERS: PCP Family Medicine; Visit Provider Family Medicine
DX: R06.00 Dyspnea, unspecified (principal); R79.89 Other specified abnormal findings of blood chemistry
CPT/HCPCS: 71275; Q9967

== ENCOUNTER → 2020-10-24 16:30 | Outpatient (CLI) | payer BC, SELFPAY ==
[2020-10-24 18:11] LABS: LDH 226 U/L (84-246)
[2020-10-24 18:17] LABS: Vitamin D,25 Hydroxy 9.8 ng/mL
[2020-10-25 07:58] LABS: PTHIN 117.6 pg/mL (18.4-80.1)
== END ==
PROVIDERS: PCP Family Medicine; Referring Provider Family Medicine; Visit Provider Family Medicine
DX: E21.3 Hyperparathyroidism, unspecified (principal); M89.8X9 Other specified disorders of bone, unspecified site
CPT/HCPCS: 36415; 82306; 83615; 83970

== ENCOUNTER → 2020-11-07 15:42 | Outpatient (CLI) | payer BC, SELFPAY ==
--- NOTE | 2020-11-07 15:46 | CT_ITS ---
STUDY: CT ABDOMEN AND PELVIS WITH CONTRAST REASON FOR EXAM: Female, 65 years old. RECENT DIAGNOSIS OF BI PULMONARY EMBOLI, WEIGHT GAIN,EDEMA -- ASSESS FOR ASSOCIATED NEOPLASTIC PROCESS OF ABD RADIATION DOSAGE (If Supplied By Facility): CTDIvol = ( 37.42 ) mGy, DLP = ( 3644.10 ) mGycm TECHNIQUE: Transaxial images were obtained from the dome of the diaphragm to the symphysis pubis with oral contrast. IV 100mL Isovue-300 was administered. Sagittal and coronal images were reconstructed. Individualized dose optimization techniques were used for this CT. COMPARISON: None. FINDINGS: The visualized lung bases are unremarkable. The visualized portions of the heart are within normal limits. Normal liver. There is non-visualization of the gallbladder, which may be secondary to either contraction or a prior cholecystectomy. Multiple small lesions of decreased attenuation within the spleen with the largest measuring 1.5 cm posteriorly likely consistent with cysts or hemangiomas. Normal pancreas. Normal bilateral adrenal glands. Normal right kidney. Normal left kidney. Normal visualized stomach. Normal small intestine. There are multiple colonic diverticula consistent with diverticulosis. There is non-visualization of the appendix. Normal abdominal aorta. Normal inferior vena cava. Normal retroperitoneum. Normal urinary bladder. Normal abdominal wall. Normal osseous structures. CT/Abdomen/Pelvis WITH Contrast IMPRESSION: 1. Small splenic lesions likely consistent with cysts or hemangiomas. 2. Sigmoid diverticulosis without diverticulitis. Electronically Signed: Jered Pride MD at 9:09 EDT Tel , Service support ,
--- NOTE | 2020-11-07 15:46 | CT_ITS ---
STUDY: CT LUMBAR SPINE WITH CONTRAST REASON FOR EXAM: Female, 65 years old. 65 YR FEMAIL W/SEVERE LOW BACK PAIN -- RECENT DX OF PULMONARY EMBOLI,?NEOPLASTIC PROCESS INVOLVING SPINE RADIATION DOSAGE (If Supplied By Facility): CTDIvol = ( 37.42 ) mGy, DLP = ( 3644.10 ) mGycm TECHNIQUE: The patient was scanned in a multi detector CT scanner. High resolution transaxial imaging was performed following the intravenous administration of IV 100mL Isovue-300. Images were obtained from T12 to S1. Sagittal and coronal images were reconstructed. Individualized dose optimization techniques were used for this CT. COMPARISON: None FINDINGS: Normal lumbar lordosis. There is no substantial scoliosis. Normal vertebrae of the lumbar spine. L1-2: Normal endplates. Normal disc height and morphology. Normal bilateral facet joints. Normal central canal and bilateral lateral recesses. Normal bilateral intervertebral neural foramina. L2-3: Normal endplates. Normal disc height and morphology. Normal bilateral facet joints. Normal central canal and bilateral lateral recesses. Normal bilateral intervertebral neural foramina. L3-4: Mild broad disc protrusion produces mild spinal stenosis and mild bilateral neural foraminal stenosis. L4-5: Mild broad disc protrusion produces mild spinal stenosis and mild bilateral neural foraminal stenosis. L5-S1: Normal endplates. Normal disc height and morphology. Normal bilateral facet joints. Normal central canal and bilateral lateral recesses. Normal bilateral intervertebral neural foramina. Normal visualized paraspinous soft tissue structures. CT/Spine Lumbar WITH Contrast IMPRESSION: Multilevel degenerative changes, as described above. Electronically Signed: Jered Pride MD at 9:04 EDT Tel , Service support ,
== END ==
PROVIDERS: PCP Family Medicine; Referring Provider Family Medicine; Visit Provider Family Medicine
DX: R60.0 Localized edema (principal); I26.99 Other pulmonary embolism without acute cor pulmonale; R63.5 Abnormal weight gain; M54.5 Low back pain
CPT/HCPCS: 72132; 74177; Q9967

== ENCOUNTER 2020-11-22 15:37 | Outpatient (RCR) | payer BC, SELFPAY ==
--- NOTE | 2020-11-28 08:57 | HP.PTEVAL_ITS ---
Patient's Visit Information ZECHARIAH STALEY is a 65 year old F referred to Physical Therapy by Dr. Tony Beth DO with a diagnosis of Back pain, Lumbar spinal stenosis. Date of Evaluation: 11/22/20 Physical Therapist: Kirby Adams DPT - Visit Plan Frequency: 1-2x /Week Duration: 6 Weeks Plan: Start with postural education and control to reduce stress at work, add in core/hip strengthening. Progress lumbar ROM. Progress HEP. Pt. to start with HEP given today due to high copay, she is to call back in ~1-2 weeks with progress, if not sooner if needed. - Subjective Pt. is here today for her initial evaluation with diagnosis of back pain, spinal stenosis with multilevel neural/foraminal stenosis. Pt. reports having increased LBP for a few months now. She has had on and off pain for a while, but reports this is constant. Pt. reports no mech of injury, but gradual increase in symptoms. Pt. denies N/T in either LE, but does reports having some urinary incontinence. She reports often getting up in AM and having fully urinated wi thout knowing. She is taking medication for this, may be for her back through. Pt. reports some weakness in her legs, but have not given out on her. 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 She did recently get a new chair at work cristina chair which she does not like. Pt. does not exercise much. Pt. has tried ice and heat without much change. Sleeping is painful, mornings are rough. Pt. is hopeful to reduce symptoms in order to get back to all work and daily activities without limitations. - Pain lumbar spine Pain Intensity (Out of 10): 4 Pain Intensity Range: 2, 8 - Objective POSTURE: Pt. has increased lumbar lordosis, anterior pelvic tilt. Pt. has wide RENA in stance. Slouched sitting posture. B anterior shoulder, FH. PALPATION: Pt. has increased tenderness at L3-L5, and B PSIS, SI region. NEURO: Pt. has normal sensation in BLEs, but does have reported peripheral neuropathy. Pt. has deminished 1+ bilateral patellar and achilles DTR. ROM: LUMBAR SPINE: flexion min loss increase NW, ext mod/max loss decrease NB, SB mod loss bilat NE, rotation mod loss bilat increase NW. B hips: flexion 90deg NE, ext neutral (tight bilat), HS length 50deg Bilat, ER/IR tight but equal. MMT: BLEs, 4+/5 generally, except B hip flexion, ext and abd 4/5. Core strength- poor. GAIT: Pt. has large postural sway with walking, towards stance leg, increased trunk sway laterally. General flexed posture, wide RENA with decreased step length bilaterally. Increased pain noted with walking. - Special Tests L/S Slump test left side: Negative L/S Slump test right side: Negative L/S Left Straight Leg Raise: Negative L/S Right Straight Leg Raise: Negative Lumbar Standing: Flexion - Mechanical Response: No effect Lumbar Standing: Flexion - Symptoms During Testing: Increases Lumbar Standing: Flexion - Symptoms After Testing: No worse Lumbar Standing: Extension - Symptoms During Testing: Decreases Lumbar Standing: Extension - Symptoms After Testing: No better Lumbar Standing: Right Side Glides - Mechanical Response: No effect Lumbar Standing: Right Side Glidden - Symptoms During Testing: No effect Lumbar Standing: Right Side Glidden - Symptoms After Testing: No effect Lumbar Standing: Left Side Glidden - Mechanical Response: No effect Lumbar Standing: Left Side Glidden - Symptoms During Testing: No effect Lumbar Standing: Left Side Glidden - Symptoms After Testing: No effect - Goals Goal 1:: LTG: Pt. to be I with HEP. Goal Time Frame: 2-4 Weeks Goal 2:: STG: Pt. to sleep throughout the night with 0-2/10 pain in lumbar spine allowing for increased quality of life. Goal Time Frame: 2-4 Weeks Goal 3:: LTG: Pt. to have increased lumbar ROM by 25% in all directions without increase in symptoms. Goal Time Frame: 4-6 Weeks Goal 4:: LTG: Pt. to be able to sit in chair at work for 2-3 hours without increase in symptoms. Goal Time Frame: 4-6 Weeks Goal 5:: LTG: pt. to ambulate unlimited distances without increase in symptoms. Goal Time Frame: 4-6 Weeks Goal 6:: LTG: Pt. to have increased B hip and core strength by 1/2 grade of all effected musculature. Goal Time Frame: 4-6 Weeks - Rehabilitation Potential Physical Therapy Diagnosis: Pt. has signs and symptoms consistent with back pain and lumbar spinals stenosis. Pt. has marked ROM loss with increased pain into flexion, and marked core weakness. She has a very sedentary job and life style which we talked about slowly adjusting. She would benefit from PT to increase lumbar ROM, postural control and core strength. Rehabilitation Potential: Fair - Anticipated Interventions Patient/Client Instruction: Educate patient on: Condition, Plan of Care, Risk Factors, Benefits of Fitness Program For the Purpose of:: To improve decision making, To facilitate caregiver knowledge, To improve self management, To prevent re-injury, To improve ability to perform tasks related to life management Therapeutic Exercise to Include: Strength training, Power training, Coordination, Body mechanics, Postural training, Flexibilty training For the Purpose of:: To decrease pain, To decrease swelling/inflammation, To increase ROM, To improve nutrient delivery to tissue, To increase oxygenation perfusion, To improve muscle performance and motor function, To improve health of tissue, To decrease soft tissue restriction, To increase flexibility/ROM, To improve endurance Thank you for the opportunity to evaluate your patient. For Medicare and Medicare HMO plans, please review the plan of care and approve it. It will need to be FAXED BACK to us at [phone] for Medicare purposes. For Medicare only, by signing this I certify the plan of care. Please let me know if there are questions or concerns regarding this plan of care. Physician Signature: Date:
--- NOTE | 2021-04-25 14:34 | HP.PT.NRP ---
ZECHARIAH STALEY was seen in my office for initial evaluation on 11/22/20. The following Plan of Care was established for this patient: Initial Frequency: 1-2x /Week Initial Duration: 6 Weeks Patient/Client Instruction: Educate patient on: Condition, Plan of Care, Risk Factors, Benefits of Fitness Program For the Purpose of:: To improve decision making, To facilitate caregiver knowledge, To improve self management, To prevent re-injury, To improve ability to perform tasks related to life management Therapeutic Exercise to Include: Strength training, Power training, Coordination, Body mechanics, Postural training, Flexibilty training For the Purpose of:: To decrease pain, To decrease swelling/inflammation, To increase ROM, To improve nutrient delivery to tissue, To increase oxygenation perfusion, To improve muscle performance and motor function, To improve health of tissue, To decrease soft tissue restriction, To increase flexibility/ROM, To improve endurance This patient was last seen in our office 11/22/20. Pertinent comments regarding their Physical therapy will appear below: Pt. was seen in PT for her low back pain. She was evaluated and has not been to PT since. Pt. will be DC from PT at this point in time. At this point I will be discontinuing this patient from physical therapy. I would be happy to see this patient again in the future if found appropriate by the physician. Thank you! Kirby Adams, JESUST Balance/Gait/Functional tests - Balance/Special Test Scores Oswestry Low Back Score: 28
== END 2020-11-22 19:00 | disposition home or self-care (01) ==
LOC: PT 15:37
PROVIDERS: PCP Family Medicine; Referring Provider Family Medicine; Visit Provider Family Medicine
DX: M48.061 Spinal stenosis, lumbar region without neurogenic claudication (principal)
CPT/HCPCS: 97161

== ENCOUNTER → 2021-12-28 | Outpatient (CLI) | payer BC, SELFPAY ==
[2021-12-28 15:18] LABS: Absolute Lymphocyte Count 1.64 X10^3/uL (0.83-4.51); Absolute Neutrophil Count 4.1 X10^3/uL (2.0-7.7); Basophil# 0.06 X10^3/uL; Basophil% 0.9 % (0-1); Eosinophil# 0.17 X10^3/uL; Eosinophils% 2.6 % (0-5); Hematocrit 43.1 % (37-47); Hemoglobin 13.9 g/dL (12.0-15.0); Lymphocyte # 1.64 X10^3/ul (0.83-4.51); Lymphocyte % 25.3 % (19-41); Mean Corp Hgb Conc 32.3 g/dL (32-36); Mean Corpuscular Hgb 29.1 pg (27.0-32.0); Mean Corpuscular Volume 90.4 fL (81-99); Mean Platelet Vol. 13.2 fl (6.2-12.0); Monocyte# 0.54 X10^3/uL; Monocyte% 8.3 % (0-10); NRBC Flagged by Analyzer 0 % (0-5); Neutrophil # 4.06 X10^3/uL (2.7-7.7); Neutrophil % 62.6 % (47-70); Platelet Count 206 K/mm3 (150-450); RBC Distribution Width CV 13.2 % (11.6-14.6); RBC Distribution Width SD 43.8 fl (35.1-43.9); Red Blood Count 4.77 M/mm3 (4.2-5.4); White Blood Count 6.5 K/mm3 (4.4-11.0)
[2021-12-28 15:19] LABS: Color, Urine Straw (Yellow); Glucose, Dipstick Normal (Normal); Ketone-Dipstick Negative (Negative); Leukocyte Esterase-Dipstick Negative /ul (Negative); Nitrite-Dipstick Negative (Negative); Occult Blood-Urine 10 /ul (Negative); Protein-Dipstick Negative (Negative); Specific Gravity, Urine 1.015 (1.002-1.030); Urine Bilirubin Dipstick Negative (Negative); Urine Clarity Clear (Clear); Urine Urobilinogen Normal (Normal)
[2021-12-28 15:57] LABS: Vitamin D,25 Hydroxy 27.6 ng/mL
[2021-12-28 16:03] LABS: ALB/GLOB Ratio 0.8 RATIO (0.9-2.4); AST(SGOT) 12 U/L (15-37); Alanine Aminotransfer ALT/SGPT 21 U/L (13-56); Albumin, Serum 3.3 g/dL (3.2-5.0); Alkaline Phosphatase 90 U/L (45-117); Anion Gap 7 (5-15); BUN 9 mg/dL (7-18); Calcium,Total 8.7 mg/dL (8.5-10.1); Chloride 107 mmol/L (98-107); Creatinine, Serum 0.75 mg/dL (0.55-1.02); EST Glomerular Filtration Rate 82 mL/min (>60); Est Glom Filt Rate - Afr Amer 100 mL/min (>60); Globulin 4.1 g/dL (2.2-4.2); Glucose 91 mg/dL (74-106); Potassium 3.8 mmol/L (3.5-5.1); Protein, Total 7.4 g/dL (6.4-8.2); Sodium Level 140 mmol/L (136-145); Thyroid Stim Hormone (TSH) 2.87 uIU/mL (0.358-3.74)
[2021-12-28 16:04] LABS: BNP,B-Type NATRIURETIC PEPTIDE 66.3 pg/mL (0-100)
[2021-12-28 18:43] LABS: PTHIN 76.9 pg/mL (18.4-80.1)
== END | disposition home or self-care (01) ==
LOC: MTLAB 11:28
PROVIDERS: PCP Family Medicine; Referring Provider Family Medicine; Visit Provider Family Medicine
DX: R06.00 Dyspnea, unspecified (principal); N25.81 Secondary hyperparathyroidism of renal origin; R60.0 Localized edema; R35.0 Frequency of micturition; E55.9 Vitamin D deficiency, unspecified
CPT/HCPCS: 36415; 80053; 81002; 82306; 83880; 83970; 84443; 85025

== ENCOUNTER → 2022-01-05 | Outpatient (CLI) | payer BC, SELFPAY ==
[2022-01-05 12:30] VITALS: PULSE 121; PULSE 130; PULSE 135; PULSE 139; PULSE 82; PULSE 91; PULSE 92; PULSE 95; O2SAT 94; O2SAT 95; O2SAT 96
--- NOTE | 2022-01-05 12:55 | CPS ---
Pt needed to take a rest at 3 minute [place] for S.O.B. and leg pain. Pt took another break at 5 minutes for lower back pain.
--- NOTE | 2022-01-08 07:04 | WT_ITS ---
PSN 6 Minute Walk Test 6 Minute Walk Test 6 Minute Walk Test: 6 Minute Walk Test PSN:6-Minute Walk Test Start: 01/05/22 12:50 Freq: Status: Active Protocol: [id number] Document 01/05/22 12:30 [facility] (Rec: 01/05/22 12:57 [facility] [id number]) 6 Minute Walk Test Date Performed 01/05/22 Time Performed 12:30 Height 5 ft 6 in Weight: 356 lb Weight in Pounds 356.[address]: Balta Assistive device used: None Pre-test Oxygen Delivery Method Room Air Pulse Ox (%) 95 Pulse Rate (60-100 beats/min) 82 Dyspnea Falguni Scale (0-10) 4 Exertion Falguni Scale (6-20) 6 1st minute Oxygen Delivery Method Room Air Pulse Rate (60-100 beats/min) 95 Dyspnea Falguni Scale (0-10) 110 2nd minute Oxygen Delivery Method Room Air Pulse Ox (%) 95 Pulse Rate (60-100 beats/min) 92 3rd minute Oxygen Delivery Method Room Air Pulse Ox (%) 94 Pulse Rate (60-100 beats/min) 121 H Dyspnea Falguni Scale (0-10) 4 Number of Rests Taken 1 Reported Symptoms Increased Work of Breathing 4th minute Oxygen Delivery Method Room Air Pulse Ox (%) 96 Pulse Rate (60-100 beats/min) 130 H 5th minute Oxygen Delivery Method Room Air Pulse Ox (%) 95 Pulse Rate (60-100 beats/min) 135 H Number of Rests Taken 1 6th minute Oxygen Delivery Method Room Air Pulse Ox (%) 96 Pulse Rate (60-100 beats/min) 139 H Dyspnea Falguni Scale (0-10) 4 Exertion Falguni Scale (6-20) 13 Reported Symptoms Increased Work of Breathing Post-test Oxygen Delivery Method Room Air Pulse Ox (%) 96 Pulse Rate (60-100 beats/min) 91 Full Laps Walked 9 Partial Lap, Number of Tiles Walked 0 Total Distance Walked (ft) 531 01/05/22 12:55 Cardiopulmonary Services by Poonam Suh Pt needed to take a rest at 3 minute [place] for S.O.B. and leg pain. Pt took another break at 5 minutes for lower back pain. Initialized on 01/05/22 12:55 - END OF NOTE Interpretation Interpretation: The patient ambulated 531 feet over the course of 6 minutes beginning on room air without assistive devices. Pretesting oxygen saturation was noted to be 95% on room air. With ambulation, the mare oxygen saturation was 94%. Although there was evidence of impaired walk distance, there was no significant exertional oxygen desaturation. Recommendations Recommendations: There is no indication for the use of supplemental oxygen at this time.
== END | disposition home or self-care (01) ==
LOC: PSN 12:17
PROVIDERS: PCP Family Medicine; Referring Provider Family Medicine; Visit Provider Family Medicine
DX: R06.00 Dyspnea, unspecified (principal)
CPT/HCPCS: 94618

== ENCOUNTER → 2022-08-28 | Outpatient (CLI) | payer BC, SELFPAY ==
--- NOTE | 2022-08-28 16:09 | BI_ITS ---
MAMMOGRAPHY - BILATERAL SCREENING REASON FOR EXAM: Female, 66 years old. Routine annual screening examination. PERTINENT HISTORY: Non-contributory. TECHNIQUE: Digital bilateral breast erich (3D mammographic acquisition) in the CC and MLO projections. 2-D mediolateral oblique (MLO) and craniocaudad (CC) views of both breasts were obtained. CAD: Full Field Digital Mammography with Computer Added Detection was performed. COMPARISON: Comparison is made with prior study dated July 20, 2017 is January 26, 2016 FINDINGS: Breast Composition: There are scattered areas of fibroglandular density. There are no dominant masses or suspicious calcifications. No other significant abnormalities are identified. There has been no significant change since the prior study. BI/SCRN MAMM (CAD)W/ERICH BILAT IMPRESSION: Stable bilateral screening mammogram. Yearly follow-up mammogram recommended. (A) ASSESSMENT CATEGORY: BIRADS Category 1: Negative. A letter regarding these results will be sent to the patient by the facility within 30 days. Approximately 10% of breast cancers are not detected by mammography. A normal mammogram should not delay biopsy of a clinically suspicious abnormality. [id number] Electronically Signed: Jamarcus Burger MD at 8:52 EDT ,
--- NOTE | 2022-08-28 16:14 | BD_ITS ---
STUDY: DUAL ENERGY X-RAY ABSORPTIOMETRY / DXA REASON FOR EXAM: Female, 66 years old. 733.00OsteoporosisBONE DENSITY REASON FOR EXAM TECHNIQUE: Bone Mineral Density (BMD) measurements of lumbar spine and bilateral hips were obtained. COMPARISON: Comparison is made with prior study dated 06/28/2014. FINDINGS: Lumbar Spine (L1-L4): g/cm2 (0.930) / T-score (-1.6) / Z-score (0.4) Findings are suggestive of osteopenia with a moderate fracture risk. Left Femur Total: g/cm2 (0.783) / T-score (-1.3) / Z-score (0.0) Left Femoral Neck: g/cm2 (0.504) / T-score (-3.1) / Z-score (-1.6) Right Femur Total: g/cm2 (0.813) / T-score (-1.1) / Z-score (0.2) Right Femoral Neck: g/cm2 (0.598) / T-score (-2.3) / Z-score (-0.7) The T-Scores on the most recent prior examination were: Lumbar Spine (L1-L4): There has been worsening of bone density since the previous examination. Left Femur Total: which represents a worsening of 6.8%. Right Femur Total: which represents a worsening of 5.9%. BD/Dexa Bone Density Study IMPRESSION: The patient is considered osteoporotic as outlined below according to World Paul Organization (WHO) criteria with a high fracture risk. There has been worsening of bone density since the previous examination. Reference Information: The T-score is the number of standard deviations above or below the standard which is normal for young adults at their peak bone mineral density. The World Health Organization (WHO) interprets the T-scores as follows: Above -1 Normal bone density Between -1 and -2.5 Osteopenia Equal to / or below -2.5 Osteoporosis As a practical clinical guideline, osteopenia may be graded as follows: Mild -1 through -1.5 Moderate -1.6 through -2.0 Severe -2.1 through -2.4 The Z-score is the number of standard deviations above or below age-matched controls. A Z-score of less than -1.5 would be considered abnormal. References: 1. NIH Osteoporosis and Related Bone Diseases www osteo.org 2. International Society for Clinical Densitometry www iscd.org 3. National Osteoporosis Foundation www nof.org Electronically Signed: Jamarcus Burger MD at 13:00 EDT ,
== END | disposition home or self-care (01) ==
PROVIDERS: PCP Family Medicine; Referring Provider Family Medicine; Visit Provider Family Medicine
DX: M81.0 Age-related osteoporosis without current pathological fracture (principal); E55.9 Vitamin D deficiency, unspecified; Z12.31 Encounter for screening mammogram for malignant neoplasm of breast
CPT/HCPCS: 77063; 77067; 77080

== ENCOUNTER → 2022-08-31 | Outpatient (CLI) | payer BC, SELFPAY ==
--- NOTE | 2022-08-31 14:35 | RAD_ITS ---
INDICATION: PAIN EXAMINATION/TECHNIQUE: X-RAY - LEFT XR Knee Complete 4 Views or More 4 VIEWS COMPARISON: None. FINDINGS: SOFT TISSUES: No soft tissue swelling or gas. No radiopaque foreign body. BONES/JOINTS: No acute fracture or subluxation.. Severe tricompartmental degenerative changes. No sclerotic or destructive changes observed. RAD/Knee 4 or More Views IMPRESSION: Severe tricompartmental degenerative changes. Electronically Signed: Maxwell Pruett MD at 15:18 EDT ,
--- NOTE | 2022-08-31 14:35 | RAD_ITS ---
INDICATION: PAIN EXAMINATION/TECHNIQUE: X-RAY - RIGHT XR Knee Complete 4 Views or More 4 VIEWS COMPARISON: 10/18/2016 FINDINGS: SOFT TISSUES: No soft tissue swelling or gas. No radiopaque foreign body. BONES/JOINTS: No acute fracture or subluxation.. Progression of severe tricompartmental degenerative changes, upright view shows bone on bone contact in the medial compartment. No sclerotic or destructive changes observed. RAD/Knee 4 or More Views IMPRESSION: Progressive tricompartmental degenerative changes. Electronically Signed: Maxwell Pruett MD at 15:21 EDT ,
== END | disposition home or self-care (01) ==
LOC: MTRAD 14:34
PROVIDERS: PCP Family Medicine; Referring Provider Family Medicine; Visit Provider Family Medicine
DX: M25.561 Pain in right knee (principal); M25.562 Pain in left knee
CPT/HCPCS: 73564

== ENCOUNTER 2022-11-21 16:00 | Outpatient (RCR) | payer BC, SELFPAY ==
--- NOTE | 2022-10-25 14:58 | HP.PTEVAL ---
Patient's Visit Information ZECHARIAH STALEY is a 67 year old F referred to Physical Therapy by Dr. Harsha Bello DO with a diagnosis of Bilateral primary osteoarthritis of knee, M17.0. Date of Evaluation: 10/25/22 Physical Therapist: Robby Holley - Visit Plan Frequency: 2x /Week Duration: 6 Weeks Plan: Continue with improving knee ROM especially knee extension, LE strengthening, and balance exercises. Use manual therapy and modalities as needed for pain control. If not tolerating land therapy well, may consider aquatic physical therapy. - Subjective Pt. is a 67 y.o. female who is having bilateral knee pain with left worse than the right which has been going on for many years but has gotten worse in the last year. She had cortisone shots in both knees last week which has helped some. Pt. does not normally ambulate with an assistive device. She denies any falls in the last six months. Pt. denies any numbness or tingling in her legs. Pt. has had x-ray of both of her knees which showed severe osteoarthritis. She has difficulty with standing longer than 5 minutes, walking longer than a 2 couple minutes, squatting, getting up from a chair, ascending/descending stairs, kneeling, walking on uneven ground, housework, and work activity. 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 Her goal with physical therapy is to be able to walk down her driveway to get her mail and just walk longer distances. Pt. has had previous physical therapy for her back in the past. She rates left knee pain at 5/10 currently, at worst 9/10, at best 0/10 and describes the pain as sharp. Pt. lives with her in a one story home with two steps to enter and bilateral handrail. Her hobbies include walking at the park and gardening. - Objective Palpation- Vague tenderness around both knees. Left knee AROM flexion 110 degrees, extension -10 degrees. Right knee AROM flexion 113 degrees, extension -15 degrees. Left hip strength flexion 4/5, abduction 4/5, adduction 4+/5, extension 4/5, knee flexion 4+/5, knee extension 4+/5, ankle DF 5/5, ankle PF 5/5. Right hip strength flexion 4/5, abduction 4/5, adduction 4+/5, extension 4/5, knee flexion 4+/5, knee extension 4+/5, ankle DF 5/5, ankle PF 5/5. Sensation- WNL bilateral lower extremities. Tandem stance right- 23 secs, left 2 secs. SLS right- unable, left- unable. 30 sec sit to stand- x 8 with no arm assist. Gait- Pt. ambulates with no assistive device and wider base of support. - Balance/Special Test Scores Lower Extremity Functional Score: 24 - Goals Goal 1:: Pt. will be able to stand for at least 10 minutes with no rest break in order to improve ADL's. Goal Time Frame: 4-6 Weeks Goal 2:: Pt. will be able to walk for at least 5 minutes with no rest break in order to improve endurance. Goal Time Frame: 4-6 Weeks Goal 3:: Pt. will improve bilateral knee extension < 10 degrees in order to improve gait mechanics. Goal Time Frame: 4-6 Weeks Goal 4:: Pt. will be able to ascend/descend at least two steps with alternating step pattern and unilateral handrail. Goal Time Frame: 4-6 Weeks Goal 5:: Pt. will rate bilateral knee pain at worst at 5/10 with ADL's. Goal Time Frame: 4-6 Weeks Goal 6:: Pt. will improve LEFS score < 60% disability in order to improve mobility. Goal Time Frame: 4-6 Weeks - Rehabilitation Potential Physical Therapy Diagnosis: Decreased bilateral knee ROM, LE strength, and balance. Pt. presents with bilateral knee osteoarthritis. Rehabilitation Potential: Good - Anticipated Interventions Patient/Client Instruction: Educate patient on: Condition, Plan of Care, Benefits of Fitness Program For the Purpose of:: To improve ability to perform ADL's, To improve performance and independence with ADL's, To improve ability of physical actions for home/community/work/leisure, To assume or resume ADL's, To improve tolerance to ADL's Therapeutic Exercise to Include: Strength training, Endurance training, Gait and locomotor training, Active ROM Comment: Continue to work on improving bilateral knee extension ROM, LE strength, and balance. For the Purpose of:: To improve ability to perform ADL's, To improve performance and independence with ADL's, To improve gait and locomotor functions, To assume or resume ADL's, To improve tolerance to ADL's Functional Training to Include: ADL Training, Gait training For the Purpose of:: To improve ability to perform ADL's, To improve performance and independence with ADL's, To assume or resume ADL's, To improve tolerance to ADL's Manual Therapy Techniques to Include: Mobilization, Passive ROM, Soft tissue mobilization For the Purpose of:: To decrease pain, To decrease swelling/inflammation, To increase ROM, To improve ability to perform ADL's, To improve performance and independence with ADL's, To assume or resume ADL's, To improve tolerance to ADL's Assistive Devices: Cane For the Purpose of:: To decrease pain, To improve ability to perform ADL's, To improve gait and locomotor functions, To improve balance, To improve safety with gait TENS: Yes IF ES: Yes Cryotherapy (ice pack, ice massage): Yes For the Purpose of:: To decrease pain, To decrease swelling/inflammation, To increase ROM, To improve ability to perform ADL's, To improve performance and independence with ADL's, To improve tolerance to ADL's Thank you for the opportunity to evaluate your patient. For Medicare and Medicare HMO plans, please review the plan of care and approve it. It will need to be FAXED BACK to us at [phone] for Medicare purposes. For Medicare only, by signing this I certify the plan of care. Please let me know if there are questions or concerns regarding this plan of care. Physician Signature: Date:
--- NOTE | 2022-11-21 16:17 | HP.PTDCSUM ---
Discharge Summary D/C summary: It has been my pleasure to treat ZECHARIAH STALEY referred by Dr. Harsha Bello DO, with the diagnosis of Bilateral primary osteoarthritis of knee, M17.0 for a total of 8 visit(s). Discharge Date: 11/21/22 Please see the following information for a summary of their discharge status. Subjective Subjective: Feeling pretty good and walking pretty good today. Doing similar exercises at home and they are helping. Grinding persists. No pain in R knee today, L knee pain to 5/10. Activities: Cannot get down on floor and get back up very easily. Grocery is OK. LB can hurt on stairs or standing too long. dr. Wayne f/u in January. riding stationary bike daily. Pain Bilateral Knee: Pain Intensity (Out of 10): 6 Overall Improvement % Improvement: 50 Objective Objective/Function: R knee -13 to 115 degrees, L knee -11 to 108 L knee painful descending steps so tend to use R and needs two rails. Walking well without much antalgia but not getting knee ext at heel strike and small steps with [place]. Overall appears better adn wants to manage at home with ex vs trial aquatic therapy Goals Goal 1:: Pt. will be able to stand for at least 10 minutes with no rest break in order to improve ADL's. Goal Progress: Goal Met Goal 2:: Pt. will be able to walk for at least 5 minutes with no rest break in order to improve endurance. Goal Progress: Goal Met Goal 3:: Pt. will improve bilateral knee extension < 10 degrees in order to improve gait mechanics. Goal Progress: Not Progressing Goal 4:: Pt. will be able to ascend/descend at least two steps with alternating step pattern and unilateral handrail. Goal Progress: two rail descent Goal 5:: Pt. will rate bilateral knee pain at worst at 5/10 with ADL's. Goal Progress: Goal Met Goal 6:: Pt. will improve LEFS score < 60% disability in order to improve mobility. Goal Progress: Progressing Plan Plan: d/c to HEP D/C Information Discharge Comments: To continue HEP d/c sentence: If there are questions or concerns regarding this patient's physical therapy, please feel free to call me at [phone]. Thank you for the referral of this patient. Sincerely, Murali Bethel, DPT, OCS, CSCS Balance/Gait/Functional tests Balance/Special Test Scores Lower Extremity Functional Score: 40
== END 2022-11-21 19:00 | disposition home or self-care (01) ==
LOC: PT 16:00
PROVIDERS: PCP Family Medicine; Referring Provider Orthopaedic Surgery; Visit Provider Orthopaedic Surgery
DX: M17.0 Bilateral primary osteoarthritis of knee (principal)
CPT/HCPCS: 97110; 97140; 97162; 97164

== ENCOUNTER → 2023-01-29 | Outpatient (CLI) | payer BC, SELFPAY ==
[2023-01-29 17:43] LABS: Absolute Lymphocyte Count 2.07 X10^3/uL (0.83-4.51); Absolute Neutrophil Count 4.8 X10^3/uL (2.0-7.7); Basophil# 0.08 X10^3/uL; Eosinophil# 0.15 X10^3/uL; Eosinophils% 1.9 % (0-5); Hematocrit 39.9 % (37-47); Lymphocyte # 2.07 X10^3/ul (0.83-4.51); Lymphocyte % 26.5 % (19-41); Mean Corp Hgb Conc 32.6 g/dL (32-36); Mean Corpuscular Hgb 29.7 pg (27.0-32.0); Mean Corpuscular Volume 91.1 fL (81-99); Monocyte# 0.67 X10^3/uL; Monocyte% 8.6 % (0-10); NRBC Flagged by Analyzer 0 % (0-5); Neutrophil # 4.84 X10^3/uL (2.7-7.7); Neutrophil % 61.9 % (47-70); Platelet Count 251 K/mm3 (150-450); RBC Distribution Width CV 13.2 % (11.6-14.6); RBC Distribution Width SD 44.1 fl (35.1-43.9); Red Blood Count 4.38 M/mm3 (4.2-5.4); White Blood Count 7.8 K/mm3 (4.4-11.0)
[2023-01-29 18:26] LABS: ALB/GLOB Ratio 0.9 RATIO (0.9-2.4); AST(SGOT) 16 U/L (15-37); Alanine Aminotransfer ALT/SGPT 21 U/L (13-56); Albumin, Serum 3.4 g/dL (3.2-5.0); Alkaline Phosphatase 96 U/L (45-117); Anion Gap 6 (5-15); BUN 17 mg/dL (7-18); BUN/Creat Ratio 12.4 RATIO (10-20); Calcium,Total 9.1 mg/dL (8.5-10.1); Chloride 105 mmol/L (98-107); Creatinine, Serum 1.37 mg/dL (0.55-1.02); EST Glomerular Filtration Rate 41 mL/min (>60); Est Glom Filt Rate - Afr Amer 50 mL/min (>60); Ferritin 159 ng/mL (8-252); Globulin 3.9 g/dL (2.2-4.2); Glucose 88 mg/dL (74-106); Potassium 3.9 mmol/L (3.5-5.1); Protein, Total 7.3 g/dL (6.4-8.2); Sodium Level 139 mmol/L (136-145); Thyroid Stim Hormone (TSH) 2.49 uIU/mL (0.358-3.74)
[2023-01-29 18:31] LABS: Vitamin D,25 Hydroxy 33.4 ng/mL
== END | disposition home or self-care (01) ==
LOC: BFHLAB 15:39
PROVIDERS: PCP Family Medicine; Referring Provider Family Medicine; Visit Provider Family Medicine
DX: I10 Essential (primary) hypertension (principal); M81.0 Age-related osteoporosis without current pathological fracture; E55.9 Vitamin D deficiency, unspecified; R53.83 Other fatigue; E61.1 Iron deficiency
CPT/HCPCS: 36415; 80053; 82306; 82728; 84443; 85025

== ENCOUNTER → 2024-04-01 | Outpatient (CLI) | payer BC, SELFPAY ==
[2024-04-01 17:27] LABS: Absolute Lymphocyte Count 1.97 X10^3/uL (0.83-4.51); Absolute Neutrophil Count 4.9 X10^3/uL (2.0-7.7); Basophil# 0.07 X10^3/uL; Basophil% 0.9 % (0-1); Eosinophil# 0.14 X10^3/uL; Eosinophils% 1.8 % (0-5); Hematocrit 37.7 % (37-47); Hemoglobin 12.5 g/dL (12.0-15.0); Lymphocyte # 1.97 X10^3/ul (0.83-4.51); Lymphocyte % 25.4 % (19-41); Mean Corp Hgb Conc 33.2 g/dL (32-36); Mean Corpuscular Hgb 29.1 pg (27.0-32.0); Mean Corpuscular Volume 87.9 fL (81-99); Mean Platelet Vol. 12.6 fl (6.2-12.0); Monocyte# 0.62 X10^3/uL; NRBC Flagged by Analyzer 0 % (0-5); Neutrophil # 4.94 X10^3/uL (2.7-7.7); Neutrophil % 63.6 % (47-70); Platelet Count 228 K/mm3 (150-450); RBC Distribution Width CV 13.2 % (11.6-14.6); RBC Distribution Width SD 42.3 fl (35.1-43.9); Red Blood Count 4.29 M/mm3 (4.2-5.4); White Blood Count 7.8 K/mm3 (4.4-11.0)
[2024-04-01 18:01] LABS: ALB/GLOB Ratio 0.8 RATIO (0.9-2.4); AST(SGOT) 14 U/L (15-37); Alanine Aminotransfer ALT/SGPT 16 U/L (13-56); Albumin, Serum 3.4 g/dL (3.2-5.0); Alkaline Phosphatase 96 U/L (45-117); Anion Gap 6 (5-15); BUN 20 mg/dL (7-18); BUN/Creat Ratio 20.3 RATIO (10-20); Calcium,Total 9.1 mg/dL (8.5-10.1); Chloride 104 mmol/L (98-107); Cholesterol 201 mg/dL (200); Creatinine, Serum 0.98 mg/dL (0.55-1.02); EST Glomerular Filtration Rate 60 mL/min (>60); Est Glom Filt Rate - Afr Amer 72 mL/min (>60); Globulin 4.1 g/dL (2.2-4.2); Glucose 85 mg/dL (74-106); High Density Lipoprotein 56 mg/dL; Potassium 3.4 mmol/L (3.5-5.1); Protein, Total 7.5 g/dL (6.4-8.2); Sodium Level 137 mmol/L (136-145); Triglycerides 77 mg/dL; Very Low Density Lipoprotein 15 mg/dL (5-40)
[2024-04-01 18:02] LABS: Vitamin D,25 Hydroxy 18.9 ng/mL
== END | disposition home or self-care (01) ==
PROVIDERS: PCP Family Medicine; Referring Provider Nurse Practitioner Family; Visit Provider Nurse Practitioner Family
DX: E55.9 Vitamin D deficiency, unspecified (principal); I10 Essential (primary) hypertension; E78.5 Hyperlipidemia, unspecified; R53.83 Other fatigue
CPT/HCPCS: 36415; 80053; 80061; 82306; 82533; 85025

== ENCOUNTER → 2024-10-23 | Outpatient (CLI) | payer BC, SELFPAY ==
--- NOTE | 2024-10-23 09:32 | RAD_ITS ---
EXAM: XR Left Shoulder Complete, 2 or More Views CLINICAL INDICATION: SHOULDER DEFORMITY, L>R, AC JOINTS PROBABLE OA TECHNIQUE: Two or more views of the left shoulder. COMPARISON: No relevant prior studies available. FINDINGS: BONES/JOINTS: Mild degenerative change of the acromioclavicular and glenohumeral joints. No acute fracture. No dislocation. SOFT TISSUES: Unremarkable. RAD/Shoulder min 2 Views IMPRESSION: Degenerative changes as above. Reading Location: [facility]
--- NOTE | 2024-10-23 09:33 | RAD_ITS ---
EXAM: XR Right Shoulder Complete, 2 or More Views CLINICAL INDICATION: SHOULDER DEFORMITY, L>R, AC JOINTS PROBABLE OA TECHNIQUE: Two or more views of the right shoulder. COMPARISON: No relevant prior studies available. FINDINGS: BONES/JOINTS: Mild degenerative changes of the acromioclavicular and glenohumeral joints. No acute fracture. No dislocation. SOFT TISSUES: Unremarkable. RAD/Shoulder min 2 Views IMPRESSION: Degenerative changes as above. Reading Location: [facility]
== END | disposition home or self-care (01) ==
LOC: MTRAD 09:30
PROVIDERS: PCP Family Medicine; Referring Provider Family Medicine; Visit Provider Family Medicine
DX: M25.511 Pain in right shoulder (principal); M25.512 Pain in left shoulder
CPT/HCPCS: 73030